=== PATIENT | male | born 1990 | race Caucasian/White ===

== ENCOUNTER → 2021-06-28 11:03 | Outpatient (BNVA) | payer OTHER, SELFPAY | PROVIDERS: Visit Provider Registered Nurse | DX: Z20.822 Contact with and (suspected) exposure to COVID-19 (principal) | CPT/HCPCS: 87635 ==

== ENCOUNTER 2024-01-23 09:13 | Outpatient (CLI) | payer SELFPAY | END 2024-01-23 09:14 | disposition home or self-care (01) | LOC: LAB 09:18 | DX: Z98.52 Vasectomy status (principal) | CPT/HCPCS: 89310 ==

== ENCOUNTER 2024-03-07 11:45 | Emergency (ER) | payer SELFPAY ==
--- NOTE | 2024-03-07 11:48 | ECG_ITS ---
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 Measurements Intervals [place] Rate: 60 P: 61 SC: 126 QRS: 54 QRSD: 107 T: 39 QT: 363 QTc: 365 Interpretive Statements SINUS RHYTHM WITH SINUS ARRHYTHMIA INCOMPLETE RIGHT BUNDLE BRANCH BLOCK [90+ ms QRS DURATION, TERMINAL R IN V1/V2, 40+ ms S IN I/aVL/V4/V5/V6] Compared to ECG 02/28/2016 14:27:22 Incomplete right bundle-branch block now present Electronically Signed On 03-08-2024 20:54:52 CDT by Andreas Fu M.D. [id number]
[2024-03-07 11:52] VITALS: BP 145/95; PULSE 63; RESP 18; TEMP 36.7; O2SAT 100
[2024-03-07 13:20] VITALS: BP 152/94; PULSE 76; RESP 16; O2SAT 97
--- NOTE | 2024-03-07 13:22 | ED_ITS ---
HPI - General Adult 2 General: Chief complaint: Chest Pain Stated complaint: chest pressure Time Seen by Provider: 03/07/24 13:05 Source: patient Mode of arrival: ambulatory Limitations: no limitations History of Present Illness: Patient is a 34-year-old male presents to ED today for evaluation of an episode that occurred 2 days ago while traveling back from [place]. He states since he has had concerning symptoms that he wanted to get checked out . He reportedly saw his primary care yesterday but did not want to wait for specialty follow-up so decided to come to the emergency department. He tells me 2 days ago while traveling back from [place] he had his left arm on the armrest and states he began noticing it going numb. He states he tried to work it out then began feeling pain on the left side of his chest. He states he started sweating profusely . He felt like he was trying to meditate his breathing and slow it down. 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 Patient eventually passed out for approximately 5 seconds. He was told by the other individuals in the truck that his head and arms shook a little . Patient had no postictal symptoms. They reportedly called EMS and upon arrival performed an EKG and told him he had sinus tachycardia . Offered to take him to the hospital the patient was already feeling better so he declined. Patient states since event he has felt like the left side of his face and neck are slightly numb and continues to feel some slight intermittent numbness to his arm as well as an abnormal sensation on the left side of his chest. He states he also has headaches and neck pain. These are reportedly somewhat chronic but worse over the past few weeks. He did have an energy drink the day of the episode. He has no known heart problems. He has never experienced any form of exertional symptoms. Onset (ago): day(s) (2d ago) Severity: mild Relieving factors: none Exacerbating factors: none Associated symptoms: Reports chest pain, headache(s) and syncope; Deny confusion, dyspnea, malaise, nausea, rash, palpitations or vomiting Treatments prior to arrival: none Related Data Home Medications Medication Instructions Recorded Confirmed xzxeutut-umdlnygr-vfnye acid 400 1 tab PO DAILY 03/06/24 03/07/24 mcg-vit K 20 mcg-lycop 300 mcg tablet (One-A-Day Men's Multivitamin) Allergies Allergy/AdvReac Type Severity Reaction Status Date / Time No Known Allergies Allergy Verified 03/07/24 11:56 Review of Systems 2 Const: Reports: fatigue; Denies: fever(s), chills, body aches or malaise Eyes: Denies: change in vision or blurry vision Card: Reports: chest pain and syncope; Denies: palpitations, irregular heart rhythm, edema, swelling of feet/ankles, lightheadedness, pre-syncope, dyspnea on exertion, orthopnea, leg pain with exertion or acrocyanosis Resp: Denies: dyspnea, productive cough, non-productive cough, pain on inspiration or chest congestion GI: Denies: abdominal pain, nausea, vomiting or diarrhea Musc: Reports: neck pain; Denies: back pain, extremity pain, extremity swelling, joint pain or joint swelling Skin/Breast: Denies: rash Neuro: Reports: headache(s) and sensory changes (L face, neck, arm); Denies: lack of coordination, difficulty walking, dizziness or confusion PFSH ED 2 PFSH: Social History Smoking and tobacco/nicotine status: current every day tobacco/nicotine user Alcohol intake: never Substance/Drug Use: never Adopted: No Caregiver/support person: No Lives independently: No Household members: spouse and children Marital status: service: No Current occupational status: employed Sexually active: Yes Do you think of yourself as: Straight/Heterosexual Current gender identity: Male Physical Exam 2 Const: COMMON NORMALS: no acute distress, average body habitus, patient oriented x3, no limitations, healthy appearing, alert and well nourished G ENERAL APPEARANCE: cooperative ORIENTATION/CONSCIOUSNESS: Yes awake, Yes oriented to person, Yes oriented to place and Yes oriented to time HENMT: COMMON NORMALS: normocephalic and atraumatic HEAD & SCALP: normal to inspection, normocephalic and atraumatic FACE & SINUS: normal facial exam and face symmetric Eye: COMMON NORMALS: Equal, round and reactive pupils present and EOMs intact bilaterally GENERAL EYE: appearance normal, both eyes and all related structures and normal light reflex PUPIL: Yes Equal, round and reactive pupils present DIRECT OPHTHALMOSCOPY: Yes normal light reflex Neck/C-Spine: COMMON NORMALS: full ROM, no lymphadenopathy, supple and no meningeal signs CERVICAL SPINE: Yes cervical ROM normal, No Cervical spine tenderness and Yes Paracervical muscle tenderness left Chest: COMMONS NORMALS: normal inspection of the chest Resp: COMMON NORMALS: normal respiratory effort and clear to auscultation bilaterally AUSCULTATION: clear to auscultation bilaterally Cardio: COMMON NORMALS: regular rate and regular rhythm RATE: regular rate RHYTHM: regular rhythm Back/Pelvis: COMMON NORMALS: thoracic and lumbar spine normal to inspection Extremity: COMMON NORMALS: normal to inspection, full ROM, capillary refill normal, no joint enlargement, no clubbing, cyanosis or edema, no calf tenderness and no pedal edema GENERAL: Yes normal exam except as noted Neuro: TORI COMA SCALE: document GCS findings [place] coma scale eye opening: Spontaneous [place] coma scale verbal response: Orientated [place] coma scale motor response: Obey commands Tori coma scale total score: 15 COMMON NORMALS: patient oriented x3, CN's II-XII intact bilaterally, moves all extremities, no focal motor deficits and gait normal SENSORIUM/ORIENTATION: Y es alert, Yes oriented to person, Yes oriented to place and Yes oriented to time MENINGEAL SIGNS: Yes no meningeal signs CRANIAL NERVES: Yes CN normal except as noted SPEECH: speech normal GAIT: Yes Normal gait present S ENSORY EXAM: Yes other (reporting abnormal sensation L side of face, neck, and lower L arm) MOTOR EXAM: 5/5 motor strength present throughout Skin: COMMON NORMALS: no rashes or lesions noted GENERAL SKIN EXAM: no rashes or lesions noted Course 2 Vital Signs: Vital signs: Vital Signs Temperature 98.1 F 03/07/24 11:52 Pulse Rate 72 03/07/24 13:40 Respiratory Rate 16 03/07/24 14:39 Blood Pressure 137/89 03/07/24 14:39 Pulse Oximetry 99 03/07/24 14:39 Oxygen Delivery Me thod Room Air 03/07/24 14:39 MDM - General Adult Medical Decision Making Patient's extensive work up today is completely benign. He will be allowed discharge and can continue to follow up with PCP. They did already place referral for cardiology. Medical Records I reviewed the patient's medical records. Lab Data I reviewed the patient's lab results. 03/07/24 13:41 03/07/24 13:[address] 03/07/24 13:22 IMPRESSION: 1. No acute intracranial hemorrhage or edema. 2. No infarct or edema. Normal ventricles. Head/Neck CTA 03/07/24 13:22 IMPRESSION: 1. No carotid artery occlusion or stenosis. 2. No aneurysm in the [place] of [place]. 3. No significant plaque identified. 4. LEFT vertebral artery is smaller caliber than the RIGHT and arises directly from the arch. No evidence for vertebral artery dissection Chest X-Ray 03/07/24 13:23 IMPRESSION: 1. Normal chest. Laboratory Results WBC 5.97 10^3/uL (3.29-11.43) 03/07/24 13:41 RBC 4.83 10^6/uL (3.85-5.65) 03/07/24 13:41 Hgb 15.40 g/dL (11.27-16.99) 03/07/24 13:41 Hct 43.9 % (37-53) 03/07/24 13:41 MCV 90.9 fl (82-101) 03/07/24 13:41 MCH 31.9 pg (27-33) 03/07/24 13:41 MCHC 35.1 g/dL (30-55) 03/07/24 13:41 RDW 12.0 % (12.1-15.1) L 03/07/24 13:41 Plt Count 311 10^3/cmm (157-399) 03/07/24 13:41 MPV 10.0 fL (7.4-10.4) 03/07/24 13:41 Neut % (Auto) 54.7 % 03/07/24 13:41 Lymph % (Auto) 35.7 % 03/07/24 13:41 [place] % (Auto) 7.5 % 03/07/24 13:41 Eos % (Auto) 1.2 % 03/07/24 13:41 Baso % (Auto) 0.7 % 03/07/24 13:41 Neut # (Auto) 3.27 10^3/uL (1.8-7.7) 03/07/24 13:41 Lymph # (Auto) 2.1 10^3/uL (0.8-4.8) 03/07/24 13:41 [place] # (Auto) 0.5 10^3/uL (0.2-0.9) 03/07/24 13:41 Eos # (Auto) 0.1 10^3/uL (0.0-0.8) 03/07/24 13:41 Baso # (Auto) 0.0 10^3/uL (0.0-0.1) 03/07/24 13:41 Nucleated RBC % (auto) 0 % 03/07/24 13:41 Nucleated RBCs # 0.0 /100WBC 03/07/24 13:41 D-Dimer 0.35 ug/mLFEU (0-0.59) 03/07/24 13:41 Sodium 141 mmol/L (136-145) 03/07/24 13:41 Potassium 4.3 mmol/L (3.5-5.1) 03/07/24 13:41 Chloride 103 mmol/L (98-107) 03/07/24 13:41 Carbon Dioxide 27 mmol/L (22-29) 03/07/24 13:41 Anion Gap 15.3 (5-19) 03/07/24 13:41 BUN 9 mg/dL (6-20) 03/07/24 13:41 Creatinine 0.9 mg/dL (0.7-1.2) 03/07/24 13:41 GFR Calculation 97.8 mL/min (90-130) 03/07/24 13:41 Glucose 90 mg/dL (65-115) 03/07/24 13:41 Calculated Osmolality 290 mOsm/kg (285-295) 03/07/24 13:41 Calcium 9.5 mg/dL (8.5-10.5) 03/07/24 13:41 Total Bilirubin 0.3 mg/dL (0.15-1.2) 03/07/24 13:41 AST 20 U/L (0-40) 03/07/24 13:41 ALT 25 U/L (0-41) 03/07/24 13:41 Alkaline Phosphatase 64 U/L (40-130) 03/07/24 13:41 Troponin T Baseline < 6 ng/L (0-15) 03/07/24 13:41 Total Protein 7.2 g/dL (6.6-8.7) 03/07/24 13:41 Albumin 4.7 g/dL (3.5-5.2) 03/07/24 13:41 Globulin 2.5 g/dL (1.3-4.6) 03/07/24 13:41 All radiology interpretation(s) finalized by discharge Discharge Plan Discharge Patient Disposition: Home Clinical Impression: Facial paresthesia Episode of syncope Qualifiers: Syncope type: unspecified Qualified Code(s): R55 - Syncope and collapse Chest pain Qualifiers: Chest pain type: unspecified Qualified Code(s): R07.9 - Chest pain, unspecified Condition: Stable Prescriptions: No Action One-A-Day Men's Multivitamin 400-20-300 mcg tablet 1 tab PO DAILY Discharge Orders: Discharge ED (Routine); Ordered 03/07/24 Ordered By: Cece Riley Referrals: Cabrera Quinones FNP [Primary Care Provider] - Activity Restrictions/Additional Instructions: As we discussed, you can continue following up with your primary care provider. They have reportedly placed a case management referral for cardiology. You may return to the emergency department for any further syncopal episodes, significant or worsening chest pain, shortness of breath, difficulty breathing, palpitations or feeling like her heart is racing, facial drooping, slurred speech, significant weakness to your extremities, or any other concerns you may have. Coding Level of Care Code ED Computer Assembler for Rickie Yu NIH stroke score NIHSS Level Of Consciousness - 1a: 0 Level Of Consciousness Questions - 1b: Both Correct Level Of Consciousness Commands - 1c: Both Correct Best Gaze - 2: Normal Visual Velarde - 3: No Visual Loss Facial Palsy - 4: Normal Motor Arm Right - 5: No Drift Motor Arm Left - 5: No Drift Motor Leg Right - 6: No Drift Motor Leg Left - 6: No Drift Limb Ataxia - 7: Absent Sensory - 8: Mild To Moderate Loss Best Language - 9: No Aphasia Dysarthia - 10: Normal Extinction And Inattention - 11: 0 Score Total Score: 1
--- NOTE | 2024-03-07 13:22 | CT_ITS ---
WS: [id number] CT ANGIOGRAM CEREBRAL AND CAROTID ARTERIES HISTORY: L facial/neck/arm numbness TECHNIQUE: CT angiogram is performed of the carotid and cerebral arteries. During arterial injection imaging is obtained from the skull vertex to the aortic arch in 1.25 mm imaging. Coronal and sagittal reformats are submitted. Additional multi planar reformats of the carotid and cerebral arteries are submitted, MIP imaging also reviewed. NASCET criteria utilized. [facility] at least one of these dose optimization techniques: automated exposure control; mA and/or kV adjust ment per patient size (includes targeted exams where dose is matched to clinical indication); or iter ative reconstruction. CONTRAST: Omnipaque 350; 100 mL IV. DLP: 510.37 mGy.cm COMPARISON: None available. Carotid Angiogram: Right carotid: Common carotid artery: Arises normally from the innominate artery. No significant plaque or stenosis. Internal carotid artery: No plaque or stenosis. External carotid artery: Patent. Left carotid: Common carotid artery: Arises normally from the aorta. No significant plaque or stenosis. Internal carotid artery: No plaque or stenosis. External carotid artery: Patent. Right vertebral artery: Mildly dominant. Intact. Left vertebral artery: Arises directly from the arch. Mild small caliber of the vertebral artery. No dissection. LEFT vertebral artery does not enter the transverse foramina until C4-5 on the LEFT. Subclavian arteries: No stenosis or significant abnormality. Upper thorax: Lung apices are clear. Mild atherosclerosis aorta. Thyroid gland: Normal. Osseous structures: Unremarkable. CEREBRAL ANGIOGRAM: Intracranial vertebral arteries: Normal with no significant atherosclerosis. Basilar artery: No significant stenosis or occlusion. No aneurysm. Intracranial Internal carotid arteries: Demonstrates no significant stenosis or plaque. Middle cerebral arteries: Normal. Anterior cerebral arteries and ACOM: Normal. Posterior cerebral arteries and PCOM's: Persistent circulation on the LEFT. P2 segments are pat ent. Dural venous sinuses are normally enhancing. Mastoid air cells: Normal. Paranasal sinuses: Mucoperiosteal thickening and mucous retention cysts in the maxillary sinuses. Calvarium: Normal. CT/CT angio headneck* [id number] IMPRESSION: 1. No carotid artery occlusion or stenosis. 2. No aneurysm in the [place] of [place]. 3. No significant plaque identified. 4. LEFT vertebral artery is smaller caliber than the RIGHT and arises directly from the arch. No evidence for vertebral artery dissection
--- NOTE | 2024-03-07 13:22 | CT_ITS ---
WS: [id number] CT HEAD NONCONTRAST HISTORY: YAP TECHNIQUE: Contiguous axial imaging performed through the brain. Bone and soft tissue windows. Sagitt al and coronal reformats reviewed. All CT scans at [facility] use at least one of these dose optimization techniques: automated exposure control; mA and/or kV adjustment per patient size (includ es targeted exams where dose is matched to clinical indication); or iterative reconstruction. DLP: 1135.82 mGy.cm COMPARISON: None available. No acute intracranial hemorrhage, midline shift or mass effect. No atrophy or prior infarcts or herniation. Ventricles: Normal size with no hydrocephalus. No inferior displacement the cerebellar tonsils. Paranasal sinuses: Frothy secretions in the RIGHT maxillary sinus. Mastoid air cells: Well pneumatized. Calvarium and scalp: Skull is intact with no soft tissue edema or swelling. CT/CT head wo con* [id number] IMPRESSION: 1. No acute intracranial hemorrhage or edema. 2. No infarct or edema. Normal ventricles.
--- NOTE | 2024-03-07 13:23 | XR_ITS ---
WS: [id number] Exam: XR chest 1V portable [id number] Date/Time of Exam: 03/07/2024 1:25 PM Reason For Exam: chest pain No priors. The lungs are clear and fully expanded. Normal cardiomediastinal silhouette. Unremarkable bony elemen ts. XR/XR chest 1V portable [id number] IMPRESSION: 1. Normal chest.
[2024-03-07 13:40] VITALS: PULSE 72; RESP 16; O2SAT 98
[2024-03-07 13:49] LABS: Basophils % 0.7 %; Eosinophils # 0.1 10^3/uL (0.0-0.8); Eosinophils % 1.2 %; Hematocrit 43.9 % (37-53); Lymphocytes # 2.1 10^3/uL (0.8-4.8); Lymphocytes % 35.7 %; Mean Corpuscular HGB Conc 35.1 g/dL (30-55); Mean Corpuscular Hemoglobin 31.9 pg (27-33); Mean Corpuscular Volume 90.9 fl (82-101); Monocytes # 0.5 10^3/uL (0.2-0.9); Monocytes % 7.5 %; Neutrophils # 3.27 10^3/uL (1.8-7.7); Neutrophils % 54.7 %; Nucleated Red Blood Cells % 0 %; Platelet Count 311 10^3/cmm (157-399); Red Blood Count 4.83 10^6/uL (3.85-5.65); White Blood Count 5.97 10^3/uL (3.29-11.43)
[2024-03-07] MEDS: iohexol 350 mg/mL 500 mL Btl (per mL) IV (14:05)
[2024-03-07 14:09] LABS: D Dimer 0.35 ug/mLFEU (0-0.59)
[2024-03-07 14:10] LABS: Alanine Aminotransferase 25 U/L (0-41); Albumin Level 4.7 g/dL (3.5-5.2); Alkaline Phosphatase 64 U/L (40-130); Anion Gap 15.3 (5-19); Aspartate Amino Transferase 20 U/L (0-40); Blood Urea Nitrogen 9 mg/dL (6-20); Calcium 9.5 mg/dL (8.5-10.5); Carbon Dioxide 27 mmol/L (22-29); Chloride 103 mmol/L (98-107); Creatinine Clr Calc Pharmacy 123.6193; Globulin 2.5 g/dL (1.3-4.6); Glomerular Filtration Rate 97.8 mL/min (90-130); Glucose 90 mg/dL (65-115); Osmolality Calculated 290 mOsm/kg (285-295); Potassium 4.3 mmol/L (3.5-5.1); Sodium 141 mmol/L (136-145); Total Bilirubin 0.3 mg/dL (0.15-1.2); Total Protein 7.2 g/dL (6.6-8.7)
[2024-03-07 14:13] LABS: Troponin(5th) Baseline < 6 ng/L (0-15)
[2024-03-07 14:39] VITALS: BP 137/89; RESP 16; O2SAT 99
[2024-03-07 15:28] VITALS: BP 120/38; RESP 16; O2SAT 98
[2024-03-07 15:32] VITALS: BP 130/88; PULSE 84; O2SAT 98
== END 2024-03-07 15:37 | disposition home or self-care (01) ==
PROVIDERS: Emergency Provider Physician Assistant; PCP Nurse Practitioner Family
DX: R20.2 Paresthesia of skin (principal); R55 Syncope and collapse; R07.9 Chest pain, unspecified; Z72.0 Tobacco use
CPT/HCPCS: 70450; 70496; 70498; 71045; 80053; 84484; 85025; 85378; 93005; 99285

== ENCOUNTER 2024-07-16 07:10 | Outpatient (CLI) | payer OTHER, SELFPAY ==
--- NOTE | 2024-07-16 07:15 | USCV_ITS ---
Rodrigo Goznalez Age: 34 Gender: M : 1990 Exam Date: 07/16/2024 07:46 Ordering Phys: Andreas Fu MD ([email or web address]) Technologist: Exam Location: [facility] [place] Indication: SYNCOPE ABNORMAL EKG BP: 148 / 83 HR: 66 Rhythm: Sinus Technical Quality: Adequate MEASUREMENTS (Male / Female) Normal Values 2D ECHO LV Diastolic Diameter PLAX 4.2 cm 4.2 - 5.9 / 3.9 - 5.3 cm IVS Diastolic Thickness 1.1 cm 0.6 - 1.0 / 0.6 - 0.9 cm IVS Systolic Thickness 1.4 cm LVPW Diastolic Thickness 1.1 cm 0.6 - 1.0 / 0.6 - 0.9 cm LVPW Systolic Thickness 1.4 cm LVOT Diameter 2.1 cm LV Ejection Fraction 2D Teich 52.6 % LV Ejection Fraction MOD 4C 59.1 % LV Ejection Fraction MOD 2C 58.1 % LV Ejection Fraction 2C AL 56.1 % LA Diameter 3.0 cm RA Systolic Volume 4C AL 28.7 ml RA Systolic Volume 4C MOD 27.2 ml Aorta at Sinotubular Diameter 2.6 cm IVC Diameter 1.9 cm M-MODE LA Ao Ratio MM 1.2 AV Cusp Separation MM 2.6 cm DOPPLER AV Peak Velocity 113.0 cm/s LVOT Peak Velocity 99.0 cm/s AV Area Cont Eq vti 3.3 cm squared AV Area Cont Eq pk 3.0 cm squared MV Peak Velocity 93.0 cm/s MV Area PHT 3.2 cm squared Mitral E to A Ratio 1.4 TV Peak Velocity 202.5 cm/s TR Peak Velocity 203.0 cm/s TR Peak Gradient 16.5 mmHg TV Peak E Velocity 90.0 cm/s PV Peak Velocity 104.0 cm/s FINDINGS Left Ventricle Normal left ventricular size and systolic function, EF 58%.no regional wall motion abnormalities. Right Ventricle The right ventricle is normal in size and function. Right Atrium The right atrium is normal in size. Left Atrium The left atrium is normal in size. Mitral Valve No gross abnormalities noted Aortic Valve No gross abnormalities noted Tricuspid Valve Trace tricuspid valve regurgitation. Pulmonic Valve No gross abnormalities noted Pericardium Normal pericardium without effusion. Aorta Normal ascending aorta dimension. IVC Normal inferior vena cava. CONCLUSIONS Normal left ventricular size and systolic function, EF 58%.no regional wall motion abnormalities. Trace tricuspid valve regurgitation. Normal cardiac chamber sizes There is no pericardial effusion. There are no intracardiac masses. No similar previous studies are available for comparison Dr Andreas Fu MD FACC (Electronically Signed) Final Date: 18 July 2024 16:10 S
== END 2024-07-16 07:11 | disposition home or self-care (01) ==
LOC: RAD 07:17
PROVIDERS: PCP Nurse Practitioner Family; Visit Provider Internal Medicine Cardiovascular Disease
DX: R06.09 Other forms of dyspnea (principal)
CPT/HCPCS: 93306

== ENCOUNTER 2025-01-19 12:06 | Outpatient (CLI) | payer OTHER, SELFPAY ==
[2025-01-19 12:18] VITALS: BMI 25.8
--- NOTE | 2025-01-19 12:19 | ECG_ITS ---
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 Interpretive Statements Lung unchanged pre/post procedure; Intraprocedure shortess of breath; Symptoms resoled by discharge PROCEDURE: At the baseline, the patient's blood pressure was 130/97 with a heart rate of 89. The baseline electrocardiogram showed normal sinus rhythm with normal ST-Ts.. The patient exercised for 11 minutes on a standard Chucho protocol. Patient attained a maximum heart rate of 181 beats per minute(96% of the maximum predicted heart rate) with a blood pressure at the peak exercise of 175/87 mm Hg. The EKG at the peak exercise revealed no significant changes. Patient did not have any chest pain or any significant cardiac arrhythmias with the exercise During the recovery phase, there were no new changes. Blood pressure at the end of the recovery phase was 145/69 mm Hg with a heart rate of 96 per minute. CONCLUSION: 1. Normal EKG response to treadmill exercise 2. No exercise-induced chest pain or cardiac arrhythmia 3. Exercise tolerance, attained a maximum of 13.5 METs Electronically Signed On 02-09-2025 07:57:14 CDT by Andreas Fu M.D. [email or web address] [id number]
[2025-01-19 12:47] VITALS: BP 145/69; PULSE 96
== END 2025-01-19 12:07 | disposition home or self-care (01) ==
LOC: CDL 12:08
PROVIDERS: PCP Nurse Practitioner Family; Visit Provider Internal Medicine Cardiovascular Disease
DX: R06.02 Shortness of breath (principal)
CPT/HCPCS: 93017